=== PATIENT | male | born 1995 | race Asian ===

== ENCOUNTER 2016-09-26 10:54 | Emergency (ER) | payer OTHER ==
[~2016-09-26] VITALS: Ht 172.7 cm; Wt 68.0 kg
[2016-09-26 11:06] VITALS: BP 122/67
== END 2016-09-26 12:28 | disposition home or self-care (01) ==
LOC: ER 10:54
DX: S42.021A Displaced fracture of shaft of right clavicle, initial encounter for closed fracture (principal); Z88.0 Allergy status to penicillin; V00.311A Fall from snowboard, initial encounter; Y93.23 Activity, snow (alpine) (downhill) skiing, snowboarding, sledding, tobogganing and snow tubing; Y99.8 Other external cause status; Y92.89 Other specified places as the place of occurrence of the external cause
CPT/HCPCS: 73000